=== PATIENT | female | born 1970 ===

== ENCOUNTER 2020-07-04 13:28 | Emergency (ER) | payer OTHER ==
[~2020-07-04] VITALS: Ht 154.9 cm; Wt 90.7 kg
[2020-07-04] MEDS ORDERED: LEVOTHYROXINE25 MCG (13:38)
[2020-07-04] MEDS ORDERED: LIPITOR20 MG (13:39)
[2020-07-04] MEDS ORDERED: FENOFIBRIC ACID (13:39)
[2020-07-04] MEDS ORDERED: ECOTRIN81 MG (13:39)
[2020-07-04] MEDS ORDERED: KETO10TA2 PO (17:33)
[2020-07-04] MEDS ORDERED: NORFLEX100MG PO (17:33)
[2020-07-04] MEDS ORDERED: LIDOPATCH1 EACH TOP (17:33)
== END 2020-07-04 17:44 | disposition home or self-care (01) ==
LOC: ER 13:28
DX: M62.830 Muscle spasm of back (principal); R10.32 Left lower quadrant pain